=== PATIENT | female | born 1990 | race Caucasian/White ===

== ENCOUNTER 2023-10-16 11:37 | Emergency (ER) | payer OTHER ==
[~2023-10-16] VITALS: Ht 157.5 cm; Wt 93.0 kg
[2023-10-16 12:03] VITALS: BP 139/85; PULSE 76; RESP 20; TEMP 98.1; O2SAT 96
[2023-10-16] MEDS ORDERED: BACI-418 TP (13:35)
[2023-10-16] MEDS ORDERED: IBUP-1842 PO (13:35)
== END 2023-10-16 14:13 | disposition home or self-care (01) ==
LOC: MED 11:37
DX: S02.2XXA Fracture of nasal bones, initial encounter for closed fracture (principal); S60.221A Contusion of right hand, initial encounter; S00.411A Abrasion of right ear, initial encounter; S00.31XA Abrasion of nose, initial encounter; Z79.1 Long term (current) use of non-steroidal anti-inflammatories (NSAID); Y04.8XXA Assault by other bodily force, initial encounter; Y93.89 Activity, other specified; Y92.411 Interstate highway as the place of occurrence of the external cause; Y99.8 Other external cause status
CPT/HCPCS: 70486; 73130; 81002; 81025; 99284